=== PATIENT | female | born 1955 | race Caucasian/White ===

== ENCOUNTER 2018-01-17 11:29 | Outpatient (CLI) | payer MEDICARE ==
[~2018-01-17] VITALS: Ht 170.2 cm; Wt 93.6 kg
--- NOTE | ~2018-01-17 | HEMODYNAMI ---
PATIENT:RALPH BEAVER MEDICAL RECORD: [id number] : 57 LOCATION:[facility] ADMISSION DATE: 01/17/18 Generatedon:01/17/201813:34 Patient name: RALPH BEAVER Patient #: [id number] SSN: : 1955 Date of study: 01/17/2018 Page: Of Hemodynamic Procedure Report Patient Data Patient Demographics Procedure consent was obtained First Name: RALPH Gender: Female Last Name: SARANYA : 1955 [facility] Initial: CANDIDO Age: 62 year(s) Patient #: [id number] Race: Unknown Additional ID: [id number] Contact details Address: [place] [address] State: [place] City: [place] Zip code: [address] Past Medical History Allergies Allergen Reaction Date Comments Reported Other allergy 01/17/2018 Sulfa, Fentanyl Admission Admission Data Admission Date: 01/17/2018 Admission Time: 11:29 Admit Source: Other Lab Results Lab Result Date: 01/17/2018 Lab Result Time: 0:00 Biochemistry Name Units Result Min Max BUN mg/dl 28 --(----)-* 7 18 Creatinine mg/dl 1 --(--*-)-- 0.6 1.3 CBC Name Units Result Min Max Hematocrit % 42.8 --(*---)-- 42 54 Hemoglobin g/dl 14.7 --(-*--)-- 13.5 17.5 Procedure Procedure Types Cath Procedure Diagnostic Procedure C [facility] w/Coronaries Procedure Description Procedure Date Procedure Date: 01/17/2018 Procedure Start Time: 13:19 Procedure End Time: 13:34 Procedure Staff Name Function Sylvain Mcleod MD Performing Physician Subhash Crooks RN Nurse Sinai Lopez RT Development Eng Yon De La Cruz RT Monitor Carolynn Roth RT Scrub Felix Luna RT Development Eng Procedure Data Cath Procedure Fluoroscopy Diagnostic fluoroscopy Total fluoroscopy Time: 2.5 time: 2.5 min min Diagnostic fluoroscopy Total fluoroscopy dose: 342 dose: 342 mGy mGy Contrast Material Contrast Material Type Amount (ml) Isovue 300 41 Entry Location Entry Primary Successful Side Size Upsize Upsize Entry Closure Shukla ccessful Closure Location (Fr) 1 (Fr) 2 (Fr) Remarks Device Remarks Radial Right 6 Fr Mechanical artery Short Compression Diagnostic catheters Device Type Used For End Catheter Placement DIAGNOSTIC Murdock 110cm 5 Left Coronary Fr catheter ([id number]) Angiography DIAGNOSTIC JL 3.5 5Fr Left Coronary catheter ([id number]) Angiography Procedure Complications No complications Procedure Medications Medication Administration Route Dosage Oxygen etCO2 Nasal cannula 2 l/min Lidocaine 2% added to field 20 Heparin Flush Bag added to field 2 bags (1000units/500ml NS) 0.9% NaCl I.V. 100 ml/hr Zofran I.V. 4 mg Radial Cocktail I.A. 1 syringe (Verapomil 2mg/Nitro 400mcg/Heparin 1500units) Versed I.V. 2 mg Dilaudid I.V. 1 mg Versed I.V. 2 mg Dilaudid I.V. 1 mg Versed I.V. 2 mg Hemodynamics Rest Heart Rate: 79 (bpm) Pressure Samples Time Site Value (mmHg) Purpose Heart Use Rate(bpm) 13:23 LV 145/8,11 EDP 79 13:23 AO 172/102(131) Pullback 81 13:23 LV 178/19,21 Pullback 81 Gradients Valve Time Site 1 Site 2 Mean SEP/DFP Peak To Heart Use (mmHg) (sec/min) Peak Rate (mmHg) (bpm) Aortic 13:23 LV AO 4 10 6 81 178/19,21 172/102(131) Calculations Valve P-P Mean Valve Index Valve Source Name Gradient Area Flow (cm2) Aortic 6 4 6 4 Snapshots Pre Cath Intra NCS Post Cath Vital Signs Time Heart Resp SPO2 etCO2 NIBP (mmHg) Rhythm Pain Sedation Rate (ipm) (%) (mmHg) Status Level (bpm) 13:01:15 66 18 98 0 Measuring NSR 0 (11) 10(A) , No pain 13:08:17 61 17 100 31.6 Measuring NSR 0 (11) 10(A) , No pain 13:08:48 60 16 100 34.6 159/83(127) NSR 0 (11) 10(A) , No pain 13:15:34 72 13 98 24.8 179/93(123) NSR 0 (11) 10(A) , No pain 13:20:33 73 46 99 39.1 161/91(134) NSR 0 (11) 10(A) , No pain 13:25:25 94 15 92 38.4 145/98(129) NSR 0 (11) 10(A) , No pain 13:32:23 78 18 93 45.9 157/79(119) NSR 0 (11) 10(A) , No pain Medications Time Medication Route Dose Verified Delivered Reason Notes Effectiveness by by 13:06:03 Oxygen etCO2 2 l/min Sylvain Buffie used for Nasal [facility] Hakeem Crooks RN procedure cannula 13:07:40 Lidocaine 2% added 20ml Sylvain Sylvain for local to vial [facility] anesthetic field MD HA 13:07:51 Heparin Flush added 2 bags Sylvain Sylvain used for Bag to [facility] procedure (1000units/500ml field MD HA NS) 13:08:04 0.9% NaCl I.V. 100 Sylvain Buffie Per ml/hr [facility] Hakeem crawley MD 13:10:19 Zofran I.V. 4 mg Sylvain Buffie Per nausea [facility] Hakeem umaña MD 13:10:45 Radial Cocktail I.A. 1 Sylvain Buffie for (Verapomil syringe [facility] Hakeem Crooks RN vasodilation 2mg/Nitro MD 400mcg/Heparin 1500units) 13:17:20 Versed I.V. 2 mg Sylvain Buffie for sedation [facility] Hakeem Crooks RN, MD 13:18:26 Dilaudid I.V. 1 mg Sylvain Buffie for sedation [facility] Hakeem Crooks RN, MD 13:23:01 Versed I.V. 2 mg Sylvain Buffie for sedation [facility] Hakeem Crooks RN, MD 13:24:46 Dilaudid I.V. 1 mg Sylvain Buffie for sedation [facility] Hakeem Crooks RN, MD 13:27:54 Versed I.V. 2 mg Sylvain Buffie for sedation [facility] Hakeem Crooks RN, MD Procedure Log Time Note 12:43:33 Informed consent obtained and on chart 12:44:47 Admit Source: Other 12:45:03 Diagnostic Cath status Elective 12:45:04 Sinai Counts RT(R) sent for patient. Start room use. 12:45:05 Time tracking: Regular hours (M-F 7:00 - 5:00) 12:45:08 Plan of Care:Hemodynamics will remain stable., Cardiac rhythm will remain stable., Comfort level will be maintained., Respiratory function will remain adequate., Patient/ family verbilizes understanding of procedure., Procedure tolerated without complication., Recovers from procedure without complications.. 12:46:39 Patient allergic to Other allergySulfa, Fentanyl 12:47:20 Lab Result : BUN 28 mg/dl 12:47:20 Lab Result : Creatinine 1 mg/dl 12:47:20 Lab Result : Hematocrit 42.8 % 12:47:20 Lab Result : Hemoglobin 14.7 g/dl 12:47:23 Lab results completed and on chart. 12:47:38 H&P Date Dictated: 12/20/2017 Within 30 days and on chart., H&P Addendum completed by physician on day of procedure. (MUST COMPLETE FOR ALL OUTPATIENTS). 12:51:54 Patient received from Pre/Post Procedure Room to CCL 1 Alert and oriented. Tansferred to table in Supine position. 12:51:55 Warm blankets applied, and laurita hugger turned on for patient comfort. 12:51:56 Correct patient and procedure confirmed by team. 12:51:57 ECG and BP/O2 sat monitors applied to patient. 12:51:59 Pre-procedure instructions explained to patient. 12:51:59 Pre-op teaching completed and patient verbalized understanding. 12:52:01 Family in waiting room. 12:52:42 Patient NPO since Midnight. 13:00:06 Vital chart was started 13:00:10 Rhythm: sinus rhythm 13:00:11 Full Disclosure recording started 13:00:16 Is the patient allergic to Iodine/contrast media? No. 13:00:19 Is patient on blood thinner?No 13:00:21 Patient diabetic? Yes. 13:00:22 If diabetic: On Metformin? No 13:00:26 Previous problem with sedation/anesthesia? No ? 13:00:27 Snore? Yes 13:00:28 Sleep apnea? No 13:00:29 Deviated septum? No 13:00:30 Opens mouth fully? Yes 13:00:31 Sticks out tongue? Yes 13:00:33 Airway obstruction? No ? 13:00:37 Dentures? Yes IN 13:00:40 Pre procedure: right dorsailis pedis pulse 2+ Normal; easily identifiable; not easily obliterated 13:00:42 Modified Wilber's test Ulnar < 7 seconds 13:00:44 Patient pain scale 0/10 ?. 13:00:51 IV patent on arrival in left antecubital with 0.9% NaCl at [facility]. 13:00:57 Right Radial & Right Groin area was prepped with chlora-prep and draped in sterile fashion 13:00:58 Alarms reviewed by R. N. 13:00:59 Sharps counted by scrub and verified by R.N. 13:01:02 Use device set Radial Dx or PCI 13:01:04 ACIST Syringe (54238) opened to sterile field. 13:01:05 Medline Cath Pack ([id number]) opened to sterile field. 13:01:07 Bag Decanter (2002S) opened to sterile field. 13:01:08 DIAGNOSTIC WIRE .035 260cm J wire (433396) opened to sterile field. 13:01:09 ACIST Hand Control (10835) opened to sterile field. 13:01:10 ACIST Manifold (15202) opened to sterile field. 13:01:14 MBrace Wrist Support ([id number]) opened to sterile field. 13:01:15 SHEATH 6Fr Prelude Radial ([id number]) opened to sterile field. 13:06:03 Oxygen 2 l/min etCO2 Nasal cannula was administered by Subhash Crooks RN; used for procedure; 13:07:40 Lidocaine 2% 20ml vial added to field was administered by Sylvain Mcleod MD; for local anesthetic; 13:07:51 Heparin Flush Bag (1000units/500ml NS) 2 bags added to field was administered by Sylvain Mcleod MD; used for procedure; 13:08:04 0.9% NaCl 100 ml/hr I.V. was administered by Subhash Crooks RN; Per physician; 13:08:18 Zero performed for pressure channel P1 13:10:19 Zofran 4 mg I.V. was administered by Subhash Crooks RN; Per physician; nausea prevention 13:10:45 Radial Cocktail (Verapomil 2mg/Nitro 400mcg/Heparin 1500units) 1 syringe I.A. was administered by Subhash Crooks RN; for vasodilation; 13:16:54 --------ALL STOP TIME OUT------ 13:16:54 Final Timeout: patient, procedure, and site verified with staff and physician. All members of the team are in agreement. 13:16:58 Right Radial & Right Groin site verified by team. 13:17:01 Physical assessment completed. ASA score P 2 - A patient with mild systemic disease as per Sylvain Mcleod MD. 13:17:05 Sedation plan: IV Moderate Sedation Medication:Versed, Fentanyl 13:17:10 Procedure started. 13:17:20 Versed 2 mg I.V. was administered by Subhash Crooks RN; for sedation; 13:18:26 Dilaudid 1 mg I.V. was administered by Subhash Crooks RN; for sedation; 13:19:51 Local anesthetic to right radial artery with Lidocaine 2% by Sylvain Mcleod MD.INITIAL ACCESS ONLY 13:19:59 A 6 Fr Short sheath was inserted into the Right Radial artery 13:22:42 A DIAGNOSTIC Murdock 110cm 5 Fr catheter (817754) was advanced over the wire and used for Left Coronary Angiography. 13:22:47 Tegaderm 4 x 4 (1626W) opened to sterile field. 13:22:47 NEEDLE Cook 21G 4cm Radial (F14826) opened to sterile field. 13:22:48 TR BAND Standard ([id number]) opened to sterile field. 13:22:52 LV angiography performed. 13:22:55 LV gram done using GAYLE 13:22:58 LV hemodynamics recorded. 13:23:01 Versed 2 mg I.V. was administered by Subhash Crooks RN; for sedation; 13:23:40 EF : 55 % 13:24:03 RCA angiography performed. 13:24:46 Dilaudid 1 mg I.V. was administered by Subhash Crooks RN; for sedation; 13:25:52 Catheter removed. 13:26:36 A DIAGNOSTIC JL 3.5 5Fr catheter ([id number]) was advanced over the wire and used for Left Coronary Angiography. 13:26:41 LCA angiography performed. 13:27:54 Versed 2 mg I.V. was administered by Subhash Crooks RN; for sedation; 13:28:15 Catheter removed. 13:28:29 Sheath removed intact; hemostasis achieved with Mechanical Compression to the Right Radial artery. 13:28:32 Procedure ended.(Physican Out) 13:28:51 Contrast amount:Isovue 300 41ml. 13:28:59 Fluoroscopy time 02.50 minutes. 13:29:04 Flurop Dose total: 342 13:29:04 Fluoroscopy dose: 342 mGy 13:29:07 Sharps counted by scrub and verified by R.N. 13:30:58 TR band inflated with 10cc of air. 13:31:02 Insertion/operative site no bleeding no hematoma. 13:31:03 Post Procedure Pulses reassessed and unchanged 13:31:07 Post procedure: right radial pulse 1+ Palpable, but thready & weak; easily obliterated. 13:31:09 Post procedure rhythm: sinus rhythm 13:33:37 Post procedure instruction explained to patient.Patient verbalizes understanding. 13:33:40 Procedure and supply charges have been captured, reviewed, submitted and are correct. 13:33:55 Procedure Complication : No complications 13:33:57 Vital chart was stopped 13:33:58 See physician's report for complete and final results. 13:34:00 Report given to Pre/Post Procedure Room. 13:34:04 Patient transfered to Pre/Post Procedure Room with Stretcher. 13:34:06 Procedure ended. 13:34:06 Full Disclosure recording stopped 13:34:09 End room use (Document Last) Device Usage Item Name Manufacture Quantity Catalog Number Hospital Part Current M inimal Lot# / Charge Number Stock Stock Serial# Code ACIST Syringe Acist 1 66251 149455 236993 214463 2 0 (31325) Medical [employer] Inc Medline Cath Cardinal 1 [id number] 378193 35295 480707 5 Pack Health ([id number]) Bag Decanter Microtek 1 593073 09446 615096 5 () Medical Inc. DIAGNOSTIC WIRE St Ac 1 963597 432001 842264 785283 3 0 .035 260cm J wire (370732) ACIST Hand Acist 1 06557 314435 488093 273305 5 Control (08888) Medical Systems Inc ACIST Manifold Acist 1 40250 065950 305434 912253 5 (61917) Medical Systems Inc MBrace Wrist Advanced 1 140-0250-00 943974 21869 979814 5 Support Vascular ([id number]) Dynamics SHEATH 6Fr Merit 1 [id number] 923389 823960 366646 5 Prelude Radial Medical ([id number]) DIAGNOSTIC Terumo 1 40-0663 491384 512028 817445 5 Murdock 110cm 5 Fr catheter (465665) Tegaderm 4 x 4 3M 1 1626W 034145 534568 081578 5 (1626W) NEEDLE Cook 21G Cook Medical 1 D47994 173413 144783 114236 5 4cm Radial (M78804) TR BAND Terumo 1 [id number] 195972 870713 879952 4 0 Standard ([id number]) DIAGNOSTIC JL Cardinal 1 [id number] 927792 842326 635160 5 3.5 5Fr Health catheter (977451N) Signature Audit [place] Stage Time Signature Unsigned Intra-Procedure 01/17/2018 Yon De La Cruz RT(R) 1:34:32 PM Signatures Monitor : Yon De La Cruz RT Signature : Date : Time : [facility] [address] [place] [address]
--- NOTE | ~2018-01-17 | OP ---
PATIENT NAME: RALPH BEAVER MEDICAL RECORD: [id number] :57 LOCATION:D.CAT ADMISSION DATE: SURGEON: SYLVIE GREEN MD DATE OF OPERATION: 01/17/2018 PROCEDURE: Left heart catheterization, selective coronary angiography, right radial approach. CATHETERS: [place] catheter, 3/5 left Lucy catheter, radial sheath. The procedure was well tolerated. The patient returned to the johnson. Sheath removed. TR band was placed. FINDINGS: Left ventriculography in 30-degree GAYLE view: Normal wall motion, normal systolic function. CORONARY ANATOMY: LEFT MAIN: Left main is free of disease. LAD: Free of disease in the diagonal system. CIRCUMFLEX: Free of disease in the marginal system. RIGHT CORONARY ARTERY: Dominant artery, gives rise to PDA, free of disease. IMPRESSION: Normal left ventricular systolic function. Normal coronary anatomy. TRANSINT:[id number] Voice Confirmation ID: [id number] DOCUMENT ID: [id number] SYLVIE GREEN MD at 0843 CC: [id number] DICTATION DATE: 01/17/18 1337 LICENSED PHARMACIST: 01/17/18 1518 DEP CLI 01/17/18 [facility] [address] [place] [address]
[2018-01-17] MEDS ORDERED: ZANAFLEX4 MG PO (11:56)
[2018-01-17] MEDS ORDERED: ZYRTEC10 MG PO (11:56)
[2018-01-17] MEDS ORDERED: TOPAMAX25 MG PO (11:56)
[2018-01-17] MEDS ORDERED: XANAX1 MG PO (11:57)
[2018-01-17] MEDS ORDERED: ESTRACE1 MG PO (11:57)
[2018-01-17] MEDS ORDERED: ZOLOFT100 MG PO (11:58)
[2018-01-17 12:07] VITALS: BP 150/79; Ht 170.2 cm; Wt 93.6 kg
[2018-01-17 12:23] LABS: BASOPHILS 0.2 % (0-2); EOSINOPHILS 1.3 % (0-7); HEMATOCRIT 42.8 % (36.0-48.0); HEMOGLOBIN 14.7 g/dL (12-16); IMMATURE GRANULOCYTES 0.2 % (0-5); LYMPHOCYTES 27.9 % (15-50); MCH 30.9 pg (26.0-34.0); MCHC 34.3 g/dL (31.0-37.0); MCV 89.9 fL (80.0-100.0); MEAN PLATELET VOLUME 10.1 fL (7.4-10.4); NEUTROPHILS 65.4 % (40-80); PLATELET COUNT 246 10x3/uL (130-400); RBC 4.76 10x6/uL (4.00-5.40); RDW 12.6 % (11.5-14.5); WBC 9.2 10x3/uL (4.8-10.8)
[2018-01-17 12:37] LABS: ANION GAP 14.3 mmol/L (8-16); CALCIUM 8.7 mg/dL (8.5-10.1); CARBON DIOXIDE 23.4 mmol/L (21.0-32.0); POTASSIUM - SERUM 3.7 mmol/L (3.5-5.1)
== END 2018-01-17 15:40 | disposition home or self-care (01) ==
LOC: D.CATH 11:29
PROVIDERS: Internal Medicine Interventional Cardiology
DX: I20.9 Angina pectoris, unspecified (principal); Z01.812 Encounter for preprocedural laboratory examination

== ENCOUNTER → 2020-01-24 12:51 | Outpatient (CLI) | payer MEDICARE ==
[2018-01-17 12:07] VITALS: BMI 32.3
[~2020-01-24 12:51] MED LIST: ESTRACE1 MG PO; TOPAMAX25 MG PO; XANAX1 MG PO; ZANAFLEX4 MG PO; ZOLOFT100 MG PO; ZYRTEC10 MG PO
--- NOTE | 2020-01-26 11:00 | EC ---
PATIENT:RALPH BEAVER DATE OF SERVICE: 01/24/20 SEX: F MEDICAL RECORD: [id number] DATE OF : 57 LOCATION:D.[facility]ER[facility] AGE OF PATIENT: 64 ADMISSION DATE: 01/24/20 REFERRING PHYSICIAN: INTERPRETING PHYSICIAN: SYLVIE GREEN MD ECHOCARDIOGRAM REPORT ECHO CHARGES 4 ECHO COMPLETE Date: 01/24/20 CLINICAL DIAGNOSIS: ANGINA/SYNCOPE/ HX OF MVP ECHOCARDIOGRAPHIC MEASUREMENTS (adult normal given) AC root (d.<3.7cm) 3.2 cm LV Septum d (<1.2 cm> 1.2 cm Valve Excursion 1.4 cm LV Septum (systole) 1.4 cm Left Atria (s.<4.0cm> 3.3 cm LVPW d(<1.2cm) 1.3 cm RV (d.<2.3cm) 3.7 cm LVPW (sytole) 1.6 cm LV diastole(<5.6CM) 4.4 cm MV E-F(>70mm/sec) cm LV systole 3.4 cm LVOT Diameter 1.7 cm MV exc.(>10mm) 1.1 cm Est.ejection fraction (50-75%) % DOPPLER: LVIT cm/sec A 101.0cm/sec E 82.0 cm/sec LA cm/sec RVSP 32 mmHg LVOT 114 cm/sec AOP1/2T m/s Asc. Ao 134 cm/sec RVOT 88 cm/sec RA cm/sec PA 124 cm/sec AV Gradient Peak 7.21 mmHg AV Mean 3.72 mmHg AV Area 2.0 cm MV Gradient Peak 6.49 mmHg MV Mean 2.51 mmHg MV Area cm COMMENTS: Insurance Claims Adjuster: 2 ZEV LITTLE Sugar Presser: 3 Dr. Powell TAPE# PACS Pericardial Effusion N DATE OF SERVICE: Adequate 2D, color-flow imaging, spectral Doppler, and M-Mode Borderline LVH. LV internal dimension is normal. Wall motion is normal. EF is greater than or equal to 55%. Aortic valve is tricuspid. No evidence of stenosis by Doppler interrogation. Left atrium is normal. Mitral valve shows some redundancy, but no true prolapse. Trace MR. Right-sided chambers are grossly normal. Mild TR. ECHOCARDIOGRAM REPORT [id number] RALPH BEAVER TRANSINT:[id number] Voice Confirmation ID: [id number] DOCUMENT ID: [id number] SYLVIE GREEN MD at 1100 CC: [id number] DICTATION DATE: 01/25/20919 PACKAGING MACHINE SUPPLIES DISTRIBUTOR: 01/25/20 1342 DEP CLI 01/24/20 [place] [id number] [place] [id number]
== END | disposition home or self-care (01) ==
LOC: D.HCCECHO 01-04 14:30
PROVIDERS: ATTEND Internal Medicine Interventional Cardiology
DX: I20.9 Angina pectoris, unspecified (principal)

== ENCOUNTER 2020-09-18 17:30 | Outpatient (CLI) | payer MEDICARE ==
[2018-01-17 12:07] VITALS: BMI 32.3
== END 2020-09-18 23:59 | disposition home or self-care (01) ==
LOC: D.MAMMO 17:30
PROVIDERS: ATTEND General Practice
DX: Z12.31 Encounter for screening mammogram for malignant neoplasm of breast (principal)